=== PATIENT | female | born 1960 | race Caucasian/White ===

== ENCOUNTER 2017-07-27 16:33 | Inpatient (IN) | payer SELFPAY ==
[~2017-07-27] VITALS: Ht 162.6 cm; Wt 91.9 kg
[~2017-07-27 16:33] MED LIST: BUTALB-ACETAMI1 EACH PO; ESTRADIOL1 MG PO; METOPROLOL TART25 MG PO; NAPROXEN500 MG PO
[2017-07-27] MEDS ORDERED: SODIUM CHLORIDE 0.9% 1000ML 1,000 ML IV STA (18:11)
[2017-07-27] MEDS ORDERED: MORPHINE SULFATE 4 MG/ML SYR IV STA (18:11)
[2017-07-27] MEDS ORDERED: ACETAMINOPHEN 1000 MG/100 ML IV STA (18:11)
[2017-07-27] MEDS ORDERED: PROMETHAZINE HCL (IM) 25 MG/ML VIAL IV STA (18:11)
[2017-07-27] MEDS ORDERED: DIATRIZOATE MEGL/DIATRIZOA SOD 30 ML BTL PO ONE (18:15)
[2017-07-27] MEDS ORDERED: PROMETHAZINE 25MG/SOD CHL 0.9% 50 ML IV ONE (18:30)
[2017-07-27 19:28] LABS: BILIRUBIN,URINE 1+ (NEGATIVE); CLARITY,URINE SL CLOUDY (CLEAR); COLOR,URINE ORANGE (YELLOW); KETONES,URINE TRACE (NEGATIVE); LEUKOCYTE ESTERASE ,URINE NEGATIVE (NEGATIVE); NITRITE,URINE NEGATIVE (NEGATIVE); PROTEIN,URINE DIPSTICK 2+ (NEGATIVE); URINE UROBILINOGEN 0.2 mg/dL (0.2 - 1)
[2017-07-27] MEDS ORDERED: MORPHINE SULFATE 2 MG/ML SYR ONE (19:35)
[2017-07-27 19:39] LABS: BASOPHILS # (AUTO) 0.1 (0.0-0.1); BASOPHILS % 0.9 % (0.0-1.0); EOSINOPHILS # (AUTO) 0.2 (0.0-0.4); EOSINOPHILS % 1.7 % (0.0-6.0); HEMATOCRIT 37.1 % (34.2-44.1); HEMOGLOBIN 12.9 g/dL (12.0-16.0); LYMPHOCYTES # (AUTO) 2.5 (1.0-3.2); LYMPHOCYTES % 21.7 % (18.0-39.1); MEAN CORPUSCULAR HEMOGLOBIN 31.9 pg (28-32); MEAN CORPUSCULAR HGB CONC 34.8 g/dL (31-35); MEAN CORPUSCULAR VOLUME 91.8 fL (81-99); MONOCYTES # (AUTO) 1.2 (0.2-0.8); MONOCYTES % 10.5 % (4.4-11.3); NEUTROPHILS # (AUTO) 7.5 (2.1-6.9); PLATELET COUNT 305 x10e3/uL (140-360); RED BLOOD COUNT 4.04 x10e6/uL (3.6-5.1); RED CELL DISTRIBUTION WIDTH 12.6 % (11.7-14.4)
[2017-07-27 19:44] LABS: BACTERIA,URINE MODERATE /HPF; EPITHELIAL CELLS,URINE FEW /LPF; MUCUS,URINE MODERATE (RARE)
[2017-07-27 19:58] LABS: ALANINE AMINOTRANSFERASE 29 IU/L (0-55); ALBUMIN/GLOBULIN RATIO 0.6 (0.8-2.0); ALKALINE PHOSPHATASE 132 IU/L (40-150); ANION GAP 14.3 mmol/L (8-16); BLOOD UREA NITROGEN 7 mg/dL (7-26); BUN/CREATININE RATIO 8 (6-25); CARBON DIOXIDE 27 mmol/L (22-29); CHLORIDE 95 mmol/L (98-107); CREATININE, SERUM 0.83 mg/dL (0.57-1.11); EST GLOMERULAR FILTRATION RATE > 60 ML/MIN (60-); GLUCOSE 123 mg/dL (74-118); POTASSIUM 3.3 mmol/L (3.5-5.1); SODIUM 133 mmol/L (136-145)
[2017-07-27 20:05] LABS: CREATINE KINASE MB 0.5 ng/mL (0-5.0)
--- NOTE | 2017-07-27 20:48 | Diagnostic Imaging Report ---
EXAMINATION: CHEST SINGLE (PORTABLE) INDICATION: \S\ERMD ORDER \S\[id number] \S\1952 \S\Y COMPARISON: None FINDINGS: AP view TUBES and LINES: None. LUNGS: Lungs are well inflated. Lungs are clear. There is no evidence of pneumonia or pulmonary edema. PLEURA: No pleural effusion or pneumothorax. HEART AND MEDIASTINUM: The cardiomediastinal silhouette is unremarkable.. BONES AND SOFT TISSUES: No acute osseous lesion. Soft tissues are unremarkable. UPPER ABDOMEN: No free air under the diaphragm. IMPRESSION: No acute thoracic abnormality. Signed by: Dr. Trinity Oliveira M.D. on 07/27/2017 8:45 PM
[2017-07-27] MEDS ORDERED: SODIUM CHLORIDE 0.9% 50ML 50 ML ONE (21:21)
[2017-07-27] MEDS ORDERED: IOPAMIDOL 370 MG/ML 200 ML INFUS..BTL INJ ONE (21:22)
--- NOTE | 2017-07-27 21:41 | Diagnostic Imaging Report ---
EXAM: CT ABDOMEN/PELVIS W DATE: 07/27/2017 6:11 PM INDICATION: Abdominal pain, appendicitis or diverticulitis COMPARISON: None TECHNIQUE: The abdomen and pelvis were scanned using a multidetector helical scanner. Coronal and sagittal reformations were obtained. Routine protocol performed. IV Contrast: 100 ml Isovue 300/370 Oral contrast was administered FINDINGS: LOWER THORAX: No consolidations LIVER/BILIARY: No masses. No ductal dilatation. GALLBLADDER: Unremarkable SPLEEN: Unremarkable PANCREAS: Unremarkable ADRENALS: No nodules KIDNEYS: Symmetric perfusion. No enhancing masses. No hydronephrosis. GI TRACT: Mild to moderate wall thickening apparently involving the ascending colon and hepatic flexure. Normal appendix. VESSELS: Unremarkable PERITONEUM/RETROPERITONEUM: No free air or fluid LYMPH NODES: Prominent right pericolonic and ileocecal nodes, the largest 1.1 cm in short axis, likely reactive. Several prominent perirectal nodes are nonspecific measuring up to 7 mm. REPRODUCTIVE ORGANS/BLADDER: Hysterectomy. Unremarkable bladder BONES: Multilevel degenerative changes. IMPRESSION: 1. Right sided colitis, likely infectious or inflammatory. 2. Nonspecific perirectal nodes without identified rectal abnormality. Correlate with recent or upcoming colonoscopy. Signed by: Dr Naomi Pineda MD on 07/27/2017 9:38 PM
[2017-07-27] MEDS ORDERED: SODIUM CHLORIDE 0.9% 1000ML 1,000 ML ONE (22:27)
[2017-07-27] MEDS: SODIUM CHLORIDE 0.9% 1000ML 1,000 ML IV SCH (22:28)
[2017-07-27] MEDS: PIPER-TAZ 3.375 GM 50 ML IV SCH (23:01)
--- OUTSIDE RECORDS SUMMARY | 2017-07-27 23:07 | XMS REPORT ---
Author Author [facility] Address Unknown Phone Unavailable Care Team Providers Care Email Marketing Assistant Name Role Phone DENNIS MEJÍA Unavailable Unavailable Problems This patient has no known problems. Allergies, Adverse Reactions, Alerts This patient has no known allergies or adverse reactions. Medications This patient has no known medications. Results Test Description Test Time Test Comments Text Results Atomic Results Result Comments CHEST SINGLE (PORTABLE) [place] [address] Patient Name: JACINDA LOPEZ MR #: [id number] : 1960 Age/Sex: 57/F Req #: [id number] Adm Physician: Ordered by: FANTASMA DOS SANTOS SIDEWALK INSPECTOR Report #: [id number] Location: ER Room/Bed: Procedure: [id number] DX/CHEST SINGLE (PORTABLE) Exam Date: 07/27/17 Exam Time: 1949 REPORT STATUS: Signed EXAMINATION: CHEST SINGLE (PORTABLE) INDICATION: COMPARISON : None FINDINGS: AP view TUBES and LINES: None. LUNGS : Lungs are well inflated. Lungs are clear. There is no evidence of pneumonia or pulmonary edema. PLEURA: No pleural effusion or pneumothorax. HEART AND MEDIASTINUM: The cardiomediastinal silhouette is unremarkable.. BONES AND SOFT TISSUES: No acute osseous lesion. Soft tissues are unremarkable. UPPER ABDOMEN: No free air under the diaphragm. IMPRESSION: No acute thoracic abnormality. Signed by: Sánchez PonceD. on 07/27/2017 8:45 PM Dictated By: MARILIN PEREZ MD 44 Transcribed By: GERMAN on 07/27/172044 COPY TO: FANTASMA DOS SANTOS NP CT ABDOMEN/PELVIS W [place] [address] Patient Name: JACINDA LOPEZ MR #: [id number] : 1960 Age/Sex: 57/F Req #: [id number] Adm Physician: Ordered by: FANTASMA DOS SANTOS SIDEWALK INSPECTOR Report #: [id number] Location: ER Room/Bed: Procedure: [id number] CT/CT ABDOMEN/PELVIS W Exam Date: 07/27/17 Exam Time: 2039 REPORT STATUS: Signed EXAM: CT ABDOMEN/ PELVIS W DATE: 07/27/2017 6:11 PM INDICATION: Abdominal pain, appendicitis or diverticulitis COMPARISON: None TECHNIQUE: The abdomen and pelvis were scanned using a multidetector helical scanner. Coronal and sagittal reformations were obtained. Routine protocol performed. IV Contrast : 100 ml Isovue 300/370 Oral contrast was administered FINDINGS: LOWER THORAX: No consolidations LIVER/BILIARY: No masses. No ductal dilatation. GALLBLADDER: Unremarkable SPLEEN: Unremarkable PANCREAS: Unremarkable ADRENALS: No nodules KIDNEYS: Symmetric perfusion. No enhancing masses. No hydronephrosis. GI TRACT: Mild to moderate wall thickening apparently involving the ascending colon and hepatic flexure. Normal appendix. VESSELS: Unremarkable PERITONEUM/RETROPERITONEUM: No free air or fluid LYMPH NODES: Prominent right pericolonic and ileocecal nodes , the largest 1.1 cm in short axis, likely reactive. Several prominent perirectal nodes are nonspecific measuring up to 7 mm. REPRODUCTIVE ORGANS/BLADDER: Hysterectomy. Unremarkable bladder BONES: Multilevel degenerative changes. IMPRESSION: 1. Right sided colitis, likely infectious or inflammatory. 2. Nonspecific perirectal nodes without identified rectal abnormality. Correlate with recent or upcoming colonoscopy. Signed by: Dr Nelson Pineda MD on 07/27/2017 9:38 PM Dictated By: NELSON PINEDA MD 37 Transcribed By: GERMAN on 07/27/172137 COPY TO: FANTASMA DOS SANTOS NP
[2017-07-27 23:42] VITALS: BP_SYST 109; BP_SYST 118; BP_DIAS 49; BP_DIAS 57
[2017-07-28] VITALS: BP 109/49
[2017-07-28] MEDS ORDERED: METRONIDAZOLE 500MG/NS 100ML 100 ML IV SCH
[2017-07-28] MEDS: MORPHINE SULFATE 2 MG/ML SYR IV PRN ×5 (00:27→23:30)
[2017-07-28 04:00] VITALS: BP 107/60
[2017-07-28] MEDS: PIPER-TAZ 3.375 GM 50 ML IV SCH ×3 (06:16→17:24)
[2017-07-28] MEDS: SODIUM CHLORIDE 0.9% 1000ML 1,000 ML IV SCH ×2 (06:16→14:21)
[2017-07-28 07:17] LABS: BASOPHILS # (AUTO) 0.1 (0.0-0.1); BASOPHILS % 0.5 % (0.0-1.0); EOSINOPHILS # (AUTO) 0.2 (0.0-0.4); EOSINOPHILS % 2.4 % (0.0-6.0); HEMATOCRIT 34.3 % (34.2-44.1); HEMOGLOBIN 11.8 g/dL (12.0-16.0); LYMPHOCYTES % 21.7 % (18.0-39.1); MEAN CORPUSCULAR HEMOGLOBIN 32.6 pg (28-32); MEAN CORPUSCULAR HGB CONC 34.4 g/dL (31-35); MEAN CORPUSCULAR VOLUME 94.8 fL (81-99); MONOCYTES % 10.4 % (4.4-11.3); NEUTROPHILS # (AUTO) 5.9 (2.1-6.9); NEUTROPHILS % 63.9 % (38.7-80.0); PLATELET COUNT 286 x10e3/uL (140-360); RED BLOOD COUNT 3.62 x10e6/uL (3.6-5.1); RED CELL DISTRIBUTION WIDTH 12.9 % (11.7-14.4)
[2017-07-28 07:40] LABS: ALANINE AMINOTRANSFERASE 26 IU/L (0-55); ALBUMIN 2.6 g/dL (3.5-5.0); ALBUMIN/GLOBULIN RATIO 0.6 (0.8-2.0); ALKALINE PHOSPHATASE 119 IU/L (40-150); ANION GAP 13.3 mmol/L (8-16); BLOOD UREA NITROGEN 5 mg/dL (7-26); BUN/CREATININE RATIO 6 (6-25); CALCIUM 9.2 mg/dL (8.4-10.2); CARBON DIOXIDE 27 mmol/L (22-29); CHLORIDE 101 mmol/L (98-107); CREATININE, SERUM 0.83 mg/dL (0.57-1.11); EST GLOMERULAR FILTRATION RATE > 60 ML/MIN (60-); GLUCOSE 114 mg/dL (74-118); POTASSIUM 3.3 mmol/L (3.5-5.1); SODIUM 138 mmol/L (136-145)
[2017-07-28 07:45] VITALS: BP 107/60
[2017-07-28 08:33] VITALS: BP 125/65
[2017-07-28 11:33] LABS: BAND NEUTROPHILS % (MANUAL) 6 %; EOSINOPHILS % (MANUAL) 1 % (0-7); LYMPHOCYTES % (MANUAL) 19 % (19-48); MONOCYTES % (MANUAL) 13 % (3.4-9.0); NEUTROPHILS % (MANUAL) 59 % (40-74)
[2017-07-28 11:49] LABS: HYPOCHROMASIA SLIGHT
[2017-07-28 11:50] LABS: ANISOCYTOSIS SLIGHT; PLATELET ESTIMATE ADEQUATE; PLATELET MORPHOLOGY COMMENT NORMAL; RBC MORPHOLOGY COMMENT NORMAL
[2017-07-28 12:00] VITALS: BP 121/65
[2017-07-28] MEDS ORDERED: POTASSIUM CHLORIDE 20 MEQ TAB CR PO NR (15:30)
--- NOTE | 2017-07-28 16:56 | History and Physical ---
HISTORY OF PRESENT ILLNESS: A 57-year-old female who claimed that she has no significant past medical history. Came here with vomiting, diarrhea and abdominal pain for a few days after she ate outside of her house. REVIEW OF SYSTEMS: CARDIOVASCULAR: No chest pain or palpitations. RESPIRATORY: No shortness of breath, no cough. GASTROINTESTINAL: Nausea, vomiting, diarrhea, right upper quadrant pain and right flank. GENITOURINARY: No frequency, no dysuria. ALLERGIES: SHE IS ALLERGIC TO FLAGYL AND SHE IS ALLERGIC TO BACTRIM. SOCIAL HISTORY: She does not smoke. She does not drink. PAST MEDICAL HISTORY: She claims that she does not have any significant medical condition. PHYSICAL EXAMINATION: VITAL SIGNS: Blood pressure 121/65, temperature 100.7, heart rate 88 per minute, respiratory rate is 16 per minute. Oxygen saturation 93%. HEART: Shows regular rhythm. Normal S1 and S2 sounds. LUNGS: Clear bilaterally. ABDOMEN: Soft. She has tenderness in the right upper quadrant, right flank and right lower quadrant. EXTREMITIES: Show no evidence of cyanosis, edema or trauma. LABORATORY DATA: On the blood work we have a BMP :sodium 138, potassium 3.3, chloride 101, CO2 27, BUN 5, creatinine 0.83, glucose 114. On the CBC: White blood count 9.27, hemoglobin 11.8, hematocrit 34.3, platelet count 296,000. AST 22, ALT 26, total bilirubin 0.5, alkaline phosphatase 119. FINAL IMPRESSION: 1. Right-sided colitis, rule out infectious colitis. 2. Hypokalemia. PLAN OF TREATMENT: Replace the potassium with 40 mEq p.o. one time. Continue Zosyn 3.375 grams IV piggyback q.6 hours. IV fluids with normal saline at 125 mL an hour. Morphine 4 mg IV q.4 hours. Zofran 4 mg IV q.6 hours as needed. Consult Dr. Sigifredo Zambrano for gastroenterology and recheck the potassium and magnesium levels today. Job#: [id number] EV
[2017-07-28] MEDS: ACETAMINOPHEN 325 MG TAB PO PRN (17:25)
[2017-07-28] MEDS ORDERED: POTASSIUM CHLORIDE 20 MEQ TAB CR PO ONE (18:15)
--- NOTE | 2017-07-28 18:29 | Diagnostic Imaging Report ---
PROCEDURE:HIP RIGHT 2-3 VW (+/- PELVIS) COMPARISON:[facility], DX, SP LUMBAR, COMPLETE MIN 4VW, 08/16/2016, 22:33. INDICATIONS:RIGHT HIP PAIN TODAY FINDINGS: BONES:Normal mineralization. No acute displaced fracture or dislocation. No lytic or blastic lesion. Mild degenerative changes in the right hip joint. SOFT TISSUES:Negative. OTHER:No obstructive bowel gas pattern. CONCLUSION: No acute abnormalities. Mild degenerative changes in the right hip joint. Fam Mcbride M.D. Dictated by: Fam Mcbride M.D. on 07/28/2017 at 18:31 Electronically approved by: Fam Mcbride M.D. on 07/28/2017 at 18:31
[2017-07-28 20:00] VITALS: BP 122/60
[2017-07-28 21:16] LABS: ANION GAP 10.2 mmol/L (8-16); BLOOD UREA NITROGEN 6 mg/dL (7-26); BUN/CREATININE RATIO 8 (6-25); CALCIUM 8.6 mg/dL (8.4-10.2); CARBON DIOXIDE 27 mmol/L (22-29); CHLORIDE 102 mmol/L (98-107); CREATININE, SERUM 0.78 mg/dL (0.57-1.11); EST GLOMERULAR FILTRATION RATE > 60 ML/MIN (60-); GLUCOSE 110 mg/dL (74-118); POTASSIUM 3.2 mmol/L (3.5-5.1); SODIUM 136 mmol/L (136-145)
[2017-07-28] MEDS ORDERED: POTASSIUM CHLORIDE 20 MEQ TAB CR PO STA (22:39)
[2017-07-29] VITALS: BP 130/83
[2017-07-29] MEDS: SODIUM CHLORIDE 0.9% 1000ML 1,000 ML IV SCH ×4 (00:22→23:03)
[2017-07-29] MEDS: PIPER-TAZ 3.375 GM 50 ML IV SCH ×5 (00:22→23:52)
[2017-07-29] MEDS ORDERED: PEG (High)/E-LYTE SOLN 4,000 ML BTL PO ONE (00:30)
[2017-07-29 04:00] VITALS: BP 119/66
[2017-07-29] MEDS: MORPHINE SULFATE 2 MG/ML SYR IV PRN ×4 (06:05→23:03)
[2017-07-29 09:46] VITALS: BP 146/74
[2017-07-29] MEDS ORDERED: MIDAZOLAM HCL 2 MG/2 ML VIAL ONE (12:19)
[2017-07-29] MEDS ORDERED: FENTANYL CITRATE/PF 100MCG/2 ML INJ ONE (12:19)
[2017-07-29] MEDS ORDERED: MAGNESIUM SULFATE 2GM/50ML 50 ML IV ONE (14:30)
[2017-07-29] MEDS ORDERED: POTASSIUM CHLORIDE 10 MEQ TABCR PO NR (14:30)
[2017-07-29 14:52] VITALS: BP 161/91
--- NOTE | 2017-07-29 15:12 | Progress Note ---
DATE: INTERNAL MEDICINE PROGRESS NOTE SUBJECTIVE: Patient is doing better now, not having diarrhea like she had before. PHYSICAL EXAMINATION: HEART: Shows regular rhythm. Normal S1 and S2 sounds. LUNGS: Clear bilaterally. ABDOMEN: Soft. Tenderness in the right flank area. EXTREMITIES: Show no evidence of cyanosis, edema or trauma. VITAL SIGNS: Blood pressure 146/74. Temperature 98.0 degrees. Heart rate 76 per minute. Respiratory rate is 20 per minute. Oxygen saturation 96%. On the BMP: Sodium 136, potassium 3.4, chloride 102, CO2 27, BUN 6, creatinine 0.78, glucose 110. On the CBC: White blood count 9.27, hemoglobin 11.8, hematocrit 34.3, platelet count 296,000. AST 22, ALT 26, total bilirubin 0.5, alkaline phosphatase 119. FINAL IMPRESSION: 1. Right-sided colitis. 2. Hypokalemia. PLAN OF TREATMENT: We are going to replace the potassium. Continue Zosyn 3.375 grams IV piggyback q.6 hours. Normal saline at 125 mL an hour. Morphine 4 mg IV q.4 hours as needed. Zofran 4 mg IV q.4 hours as needed. Tylenol 325 mg q.4 hours as needed. Repeat BMP, put the magnesium level. Patient is going for a colonoscopy. Job#: [id number] EV
[2017-07-29 17:25] LABS: WBC,FECAL (FECAL LACTOFERRIN) POSITIVE (NEGATIVE)
[2017-07-29] MEDS ORDERED: METRONIDAZOLE 500MG/NS 100ML 100 ML IV SCH ×2 (18:00→20:00)
--- NOTE | 2017-07-29 18:40 | Operative Report ---
DATE OF PROCEDURE: July 29, 2017 REFERRING PHYSICIAN: Dr. José Miguel Armenta. PROCEDURE PERFORMED: Colonoscopy with random biopsies. INDICATIONS FOR COLONOSCOPY: Diarrhea and abnormal CT scan of the abdomen. MEDICATION: Patient was done under MAC. Please see anesthesiologist's note. PROCEDURE: With patient in the lateral decubitus position, the flexible fiberoptic Olympus colonoscope was inserted into the rectum with ease and advanced all the way to the cecum. The mucosa was diffusely ulcerated. I repeat, the colonic mucosa was diffusely ulcerated. The scope was then withdrawn slowly, and the mucosa overlying the cecum, ascending, transverse, descending, sigmoid, and rectum was diffusely ulcerated. Multiple random biopsies were obtained. The scope was then retroflexed into the distal rectum. Small internal hemorrhoids were noted, none of which was actively bleeding. The scope was then straightened out. It was subsequently withdrawn after securing an adequate stool specimen that was sent for the appropriate stool studies. Patient tolerated the procedure well. IMPRESSION 1. Hood ulcerative colitis; random biopsies obtained. 2. Internal hemorrhoids; none actively bleeding. PLAN: Follow up histology. Follow up stool studies. Check IBD panel. Check CRP and sed rate. Timing of followup colonoscopy pending pathology report. Job#: [id number] MIGUEL cc:Dr. José Miguel Armenta
[2017-07-29 18:53] LABS: ANION GAP 12.3 mmol/L (8-16); BLOOD UREA NITROGEN < 5 mg/dL (7-26); CALCIUM 9.3 mg/dL (8.4-10.2); CARBON DIOXIDE 28 mmol/L (22-29); CHLORIDE 97 mmol/L (98-107); CREATININE, SERUM 0.74 mg/dL (0.57-1.11); EST GLOMERULAR FILTRATION RATE > 60 ML/MIN (60-); GLUCOSE 98 mg/dL (74-118); POTASSIUM 3.3 mmol/L (3.5-5.1); SODIUM 134 mmol/L (136-145)
[2017-07-29 18:55] LABS: BUN/CREATININE RATIO 7 (6-25)
[2017-07-29 20:00] VITALS: BP 138/81
[2017-07-29] MEDS: DICYCLOMINE HCL 10 MG CAP PO SCH (20:11)
[2017-07-29] MEDS: ACETAMINOPHEN 325 MG TAB PO PRN (21:00)
[2017-07-30] VITALS (7 sets, daily range): BP systolic 121–146; BP diastolic 64–81
[2017-07-30] MEDS: MORPHINE SULFATE 2 MG/ML SYR IV PRN ×4 (05:23→21:00)
[2017-07-30] MEDS: PIPER-TAZ 3.375 GM 50 ML IV SCH ×4 (05:46→23:15)
[2017-07-30] MEDS: DICYCLOMINE HCL 10 MG CAP PO SCH ×3 (08:09→21:50)
[2017-07-30] MEDS: SODIUM CHLORIDE 0.9% 1000ML 1,000 ML IV SCH ×3 (10:00→22:21)
[2017-07-30] MEDS ORDERED: PROPOFOL IV EMULSION 10 MG/ML 50 ML VIAL ONE (11:22)
[2017-07-30] MEDS ORDERED: HYOSCYAMINE SULFATE 0.5 MG/ML AMP ONE (11:22)
[2017-07-30 11:45] LABS: C DIFFICILE TOXIN A&B AMP PROB NEGATIVE (NEGATIVE)
[2017-07-30] MEDS: ACETAMINOPHEN 325 MG TAB PO PRN (12:05)
[2017-07-30] MEDS: ONDANSETRON HCL 4 MG ORAL DISINTEGRATING TAB PO PRN ×2 (12:30→16:47)
[2017-07-30] MEDS ORDERED: ACETAMINOPHEN 325 MG TAB PO PRN (12:45)
[2017-07-30] MEDS ORDERED: POTASSIUM CHLORIDE 20 MEQ TAB CR PO NR (12:45)
--- NOTE | 2017-07-30 12:54 | Progress Note ---
DATE: INTERNAL MEDICINE PROGRESS NOTE SUBJECTIVE: The patient is complaining of abdominal pain, some blood in the stools. OBJECTIVE: ABDOMEN: Soft. Slightly tender on the right side and the epigastric area. VITAL SIGNS: Blood pressure is 146/81. Temperature 98.9. Heart rate 80 per minute. Respiratory rate is 20 per minute. Oxygen saturation 93%. On the BMP: Sodium 134, potassium 3.3, chloride 97, CO2 28, BUN 5, creatinine 0.74, glucose 98. On the CBC: White blood count 9.27, hemoglobin 8.8, hematocrit 34.3, platelet count 296,000. AST 22, ALT 26, total bilirubin 0.5, alkaline phosphatase 119. FINAL IMPRESSION: 1. Ulcerative colitis as per findings on the colonoscopy. 2. Hypokalemia. PLAN OF TREATMENT: Continue with Zosyn 3.375 grams IV piggyback q.6 hours. Normal saline. Morphine 4 mg IV q.4 hours. Increase Tylenol to 650 mg q.4 hours as needed. Replace the potassium as needed. Check the potassium and magnesium level tomorrow. Continue Bentyl 10 mg 3 times a day. We are going to be waiting for the biopsy report, which can take several day. The patient might be able to be discharged before the biopsy is ready, and she can follow up with Dr. Sigifredo Zambrano, gastroenterology, as an outpatient. Job#: [id number] EV
[2017-07-31] VITALS (7 sets, daily range): BP systolic 107–144; BP diastolic 55–67
[2017-07-31] MEDS ORDERED: MESALAMINE 0.375 GM CAPCR PO STA (02:42)
[2017-07-31] MEDS ORDERED: DICYCLOMINE HCL 20 MG TAB PO STA (02:47)
[2017-07-31] MEDS: ACETAMINOPHEN 325 MG TAB PO PRN ×3 (03:10→19:29)
[2017-07-31] MEDS: SODIUM CHLORIDE 0.9% 1000ML 1,000 ML IV SCH ×2 (06:01→08:49)
[2017-07-31] MEDS: DICYCLOMINE HCL 20 MG TAB PO SCH ×3 (06:01→21:49)
[2017-07-31] MEDS: PIPER-TAZ 3.375 GM 50 ML IV SCH ×4 (06:01→23:45)
[2017-07-31 07:32] LABS: ANION GAP 11.5 mmol/L (8-16); BLOOD UREA NITROGEN < 5 mg/dL (7-26); CALCIUM 8.8 mg/dL (8.4-10.2); CARBON DIOXIDE 28 mmol/L (22-29); CHLORIDE 102 mmol/L (98-107); CREATININE, SERUM 0.73 mg/dL (0.57-1.11); EST GLOMERULAR FILTRATION RATE > 60 ML/MIN (60-); GLUCOSE 94 mg/dL (74-118); POTASSIUM 3.5 mmol/L (3.5-5.1); SODIUM 138 mmol/L (136-145)
[2017-07-31 07:33] LABS: BUN/CREATININE RATIO 7 (6-25)
[2017-07-31] MEDS: MESALAMINE 500 MG CAPCR PO SCH (08:49)
[2017-07-31] MEDS: ONDANSETRON HCL 4 MG ORAL DISINTEGRATING TAB PO PRN (08:49)
[2017-07-31] MEDS ORDERED: MESALAMINE 0.375 GM CAPCR PO SCH (09:00)
[2017-07-31] MEDS ORDERED: POTASSIUM CHLORIDE 20 MEQ TAB CR PO STA (11:52)
--- NOTE | 2017-07-31 13:21 | Progress Note ---
DATE: INTERNAL MEDICINE PROGRESS NOTE CHIEF COMPLAINT: Nausea and lack of appetite. PHYSICAL EXAM: VITAL SIGNS: Blood pressure 129/60. Temperature 97.0 degrees Fahrenheit. Heart rate 76 per minute. Respiratory rate is 18 per minute. Oxygen saturation 96%. HEART: Regular rhythm. Normal S1, S2 sounds. LUNGS: Clear bilaterally. ABDOMEN: Soft. No tension, distention, or visceromegaly. EXTREMITIES: Show no evidence of cyanosis or trauma. On the BMP: Sodium 138, potassium 3.5, chloride 102, CO2 28, BUN 5, creatinine 0.73, glucose 94. On the CBC: White blood count 9.27, hemoglobin 11.8, hematocrit 34.3, platelet count 286,000, AST 22, ALT 26, total bilirubin 0.5, alkaline phosphatase 119. FINAL IMPRESSION 1. Ulcerative colitis infection hepatic. Stool studies are still pending. 2. Hypokalemia. PLAN OF TREATMENT: Continue Apriso 4 tablets q.i.d. Continue IV Zosyn. We are going to decrease the amount of IV fluids. Replace the potassium. Recheck potassium tomorrow. Job#: [id number] FAHEEM
[2017-08-01] VITALS: BP 125/80
[2017-08-01] MEDS ORDERED: DIPHENOXYLATE/ATROPINE TAB PO STA (01:06)
[2017-08-01] MEDS ORDERED: METHYLPREDNISOLONE SOD SUCC 40 MG/ML VIAL IV STA (01:15)
[2017-08-01 04:00] VITALS: BP 133/62
[2017-08-01] MEDS: METHYLPREDNISOLONE SOD SUCC 40 MG/ML VIAL IV SCH ×3 (05:29→21:56)
[2017-08-01] MEDS: DICYCLOMINE HCL 20 MG TAB PO SCH ×3 (06:20→21:56)
[2017-08-01] MEDS: PIPER-TAZ 3.375 GM 50 ML IV SCH ×4 (06:20→23:58)
[2017-08-01] MEDS: DIPHENOXYLATE/ATROPINE TAB PO SCH ×4 (06:21→23:58)
[2017-08-01 08:15] VITALS: BP 148/65
[2017-08-01] MEDS: MESALAMINE 500 MG CAPCR PO SCH (08:54)
[2017-08-01 12:08] VITALS: BP 170/82
[2017-08-01] MEDS ORDERED: CLONIDINE HCL 0.2 MG TAB PO PRN (12:30)
--- NOTE | 2017-08-01 13:00 | Progress Note ---
DATE: INTERNAL MEDICINE PROGRESS NOTE SUBJECTIVE: She is feeling better. Finally, the diarrhea is resolving. PHYSICAL EXAMINATION: Blood pressure is 170/82. Temperature 97 degrees. Heart rate 96 per minute. Respiratory rate is 20 per minute. Oxygen saturation 96%. Abdomen is soft. Nontender, no distention, no visceromegaly. BLOOD WORK: BMP: Sodium 138, potassium 3.5, chloride 102, CO2 28, BUN 5, creatinine 0.73. Glucose 94. On the CBC, white blood count 9.27, hemoglobin 11.8, hematocrit 34.3, platelet count 296,000. AST 22, ALT 26, total bilirubin 0.5, alkaline phosphatase 119. FINAL IMPRESSION: Episode of pancolitis, most likely secondary to ulcerative colitis. PLAN OF TREATMENT 1. Continue with IV Zosyn. 2. Continue with Tylenol 350 mg q.4 h. as needed. 3. Bentyl 20 mg q.8 h. 4. Mesalamine 1500 mg daily. 5. Lomotil q.6 h. as needed. 6. Methylprednisolone 40 mg IV q.8 h. 7. Some of the stool tests are still pending. The biopsy report is pending. Patient might be able to go home tomorrow if okay with Dr. Zambrano. She was told that she has to follow up with Dr. Sigifredo Zambrano as an outpatient. She is going to need a colonoscopy once a year because of possible progression to colon cancer. Job#: [id number]
--- NOTE | 2017-08-01 13:02 | Progress Note ---
DATE: INTERNAL MEDICINE PROGRESS NOTE ADDENDUM: We are going to start her on Norvasc 5 mg daily because of hypertension, and clonidine is going to be 0.2 mg q.4 h. as needed for hypertension. Job#: [id number] EV
[2017-08-01 16:15] VITALS: BP 155/81
[2017-08-01] MEDS: ACETAMINOPHEN 325 MG TAB PO PRN (19:40)
[2017-08-01 20:00] VITALS: BP 144/71
[2017-08-02] VITALS: BP 105/51
[2017-08-02 04:00] VITALS: BP 118/64
[2017-08-02] MEDS: METHYLPREDNISOLONE SOD SUCC 40 MG/ML VIAL IV SCH (06:06)
[2017-08-02] MEDS: DICYCLOMINE HCL 20 MG TAB PO SCH (06:07)
[2017-08-02] MEDS: PIPER-TAZ 3.375 GM 50 ML IV SCH (06:08)
[2017-08-02 07:17] LABS: ANION GAP 15.2 mmol/L (8-16); BLOOD UREA NITROGEN 8 mg/dL (7-26); BUN/CREATININE RATIO 11 (6-25); CALCIUM 10.2 mg/dL (8.4-10.2); CARBON DIOXIDE 28 mmol/L (22-29); CHLORIDE 101 mmol/L (98-107); CREATININE, SERUM 0.76 mg/dL (0.57-1.11); EST GLOMERULAR FILTRATION RATE > 60 ML/MIN (60-); GLUCOSE 148 mg/dL (74-118); POTASSIUM 4.2 mmol/L (3.5-5.1); SODIUM 140 mmol/L (136-145)
[2017-08-02] MEDS: MESALAMINE 500 MG CAPCR PO SCH (08:29)
[2017-08-02 08:30] VITALS: BP 155/75
[2017-08-02] MEDS ORDERED: AMLODIPINE BESYLATE 5 MG TAB PO SCH (09:00)
--- NOTE | 2017-08-02 16:17 | Discharge Summary ---
This 57-year-old female, with no past medical history, came here with abdominal pain and diarrhea. She was found to have ulcerative colitis. Started on IV Solu-Medrol. She was started on mesalamine. Patient is doing better. Stool for culture came back negative. Some of the blood tests are still pending. Dr. Sigifredo Zambrano did a colonoscopy. She is going to follow up with him in a week. I told the patient it is important for her to follow up with Dr. Sigifredo Zambrano especially as ulcerative colitis requires frequent colonoscopies to prevent colon cancer. On physical exam, blood pressure 155/75, temperature 96.8, heart rate 63 per minute, respiratory rate 18 per minute. Oxygen saturation is 94%. The heart shows regular rhythm. Normal S1 and S2 sounds. Lungs are clear bilaterally. Abdomen is soft. No tenderness, distention or visceromegaly. On the BMP, sodium is 140, potassium 4.2, chloride 101, CO2 28, BUN 8, creatinine 0.76, glucose 148. On the CBC, white blood count 9.27, hemoglobin 11.8, hematocrit 34.3, platelet count 296,000. AST 22, ALT 26, total bilirubin 0.5, alkaline phosphatase 119. FINAL IMPRESSION 1. Ulcerative colitis. 2. Hypotension. PLAN OF TREATMENT: Patient will continue with mesalamine sustained release 1,200 mg daily and Medrol Dosepak to take as directed. She is going to get amlodipine 5 mg daily. As I said, the followup going to be by Dr. Sigifredo Zambrano, shoe repairman. The patient is to have probably followup colonoscopies in the future and follow up on the blood work and the biopsies that he took in the colon. Patient is aware of the followups and the need for them. All the questions have been answered. PÉREZ WYLIE MD Job#: [id number]
== END 2017-08-02 13:10 | disposition home or self-care (01) | DRG 387 ==
LOC: ER 16:33 → ERHOLD 23:04 → IMCU 23:08 → OBSVTOIN 07-30 12:30 → MED/SURG 07-30 14:09
PROVIDERS: ADMIT Internal Medicine; ATTEND Internal Medicine
PROC: 0DBE8ZX Excision of Large Intestine, Via Natural or Artificial Opening Endoscopic, Diagnostic (ICD-10-PCS; principal; 2017-07-29 16:43)
DX: K51.00 Ulcerative (chronic) pancolitis without complications (principal); E87.6 Hypokalemia; Z88.1 Allergy status to other antibiotic agents; Z88.3 Allergy status to other anti-infective agents; K64.8 Other hemorrhoids; I95.9 Hypotension, unspecified; Z88.5 Allergy status to narcotic agent; Z88.2 Allergy status to sulfonamides; Z88.8 Allergy status to other drugs, medicaments and biological substances
CPT/HCPCS: 36415; 45380; 71045; 74177; 80048; 80053; 81001; 82270; 82550; 82553; 83605; 83630; 83735; 83993; 84132; 84484; 85025; 85651; 86140; 86256; 86671; 87040; 87045; 87177; 87328; 87493; 88305; 93005; 96374; 99284; G0378; J1980; J2250; J2270; J2543; J2550; J2920; J7030; Q9967

== ENCOUNTER → 2017-10-21 | Day surgery (SDC) | payer SELFPAY ==
[~2017-10-21] MED LIST changes: +APRISO0.375 GM PO; +FENTANYL CITRATE/PF 100MCG/2 ML INJ ONE; +HYOSCYAMINE SULFATE 0.5 MG/ML AMP ONE; +MIDAZOLAM HCL 5MG/ML 2ML VIAL ONE; +PROPOFOL IV EMULSION 10 MG/ML 50 ML VIAL ONE
--- NOTE | 2017-10-21 18:33 | Operative Report ---
DATE OF PROCEDURE: October 21, 2017 PROCEDURE PERFORMED: Colonoscopy with biopsies. INDICATIONS FOR COLONOSCOPY: History of ulcerative colitis. MEDICATION: Patient was done under MAC. Please see anesthesiologist's note. PROCEDURE: With patient in the left lateral decubitus position, the flexible fiberoptic Olympus colonoscope was inserted into the rectum with ease and advanced all the way to the cecum. The ileocecal valve was intubated, and the scope was advanced into the terminal ileum. Biopsies were obtained. The scope was then withdrawn back into the colon. It was then withdrawn slowly. Mucosa overlying the ascending, transverse, descending and sigmoid colon revealed some patchy mild inflammatory changes. Multiple random biopsies were obtained. The scope was then retroflexed into the distal rectum and small internal hemorrhoids were noted, none of which was actively bleeding. The scope was then straightened out. It was subsequently withdrawn. Patient tolerated the procedure well. IMPRESSION: 1. Mild patchy colitis. Random biopsies obtained. 2. Small internal hemorrhoids, none actively bleeding. PLAN: Follow up histology. Continue Apriso 0.375 mg 4 tablets p.o. daily. A followup colonoscopy in 5 years. Job#: [id number] EV cc:PÉREZ WYLIE MD
== END | disposition home or self-care (01) ==
LOC: OR 11:53
PROVIDERS: ATTEND Internal Medicine Gastroenterology
DX: K51.90 Ulcerative colitis, unspecified, without complications (principal); R03.0 Elevated blood-pressure reading, without diagnosis of hypertension; K64.8 Other hemorrhoids; Z01.810 Encounter for preprocedural cardiovascular examination
CPT/HCPCS: 45380; 93005; J1980; 45378; J2250

== ENCOUNTER 2018-06-06 10:07 | Emergency (ER) | payer OTHER, SELFPAY ==
[~2018-06-06] VITALS: Ht 162.6 cm; Wt 86.2 kg
[~2018-06-06 10:07] MED LIST changes: -FENTANYL CITRATE/PF 100MCG/2 ML INJ ONE; -HYOSCYAMINE SULFATE 0.5 MG/ML AMP ONE; -MIDAZOLAM HCL 5MG/ML 2ML VIAL ONE; -PROPOFOL IV EMULSION 10 MG/ML 50 ML VIAL ONE
--- OUTSIDE RECORDS SUMMARY | 2018-06-06 10:09 | XMS REPORT | Continuity of Care Document ---
Author Author [facility] Interface Address Unknown Phone Unavailable Problems Problem Status Onset Date Classification Date Reported Comments Source OSTEOPROSIS Active 06/21/2017 [facility] DJD RIGHT FOOT Active 12/05/2016 [facility] FIBROIDS Active 05/19/2014 [facility] Abnormal vaginal bleeding Active Problem 07/09/2017 [facility] Female stress incontinence Active Problem 07/09/2017 [facility] Medications Medication Details Route Status Patient Instructions Ordering Provider Order Date Source Acetaminophen 325 MG / Oxycodone Hydrochloride 5 MG Oral Tablet [Percocet 5/325] 1 tab, PO, Q4H, PRN Pain Score 6-10, # 20 tab, 0 Refill(s) Active 06/27/2014 [facility] 24 HR Metoprolol Tartrate 50 MG Extended Release Tablet [Toprol] 50 mg, 1 tab, Route: PO, Drug form: ERTAB, Daily, Start date: 06/27/14 9:00:00, Duration: 30 day, Stop date: 07/26/14 9:00:00Notes: (Same as: Toprol XL) May split tab, but do not crush. Inactive 06/27/2014 [facility] Estradiol 1 mg, 1 tab, Route: PO, Drug form: TAB, Daily, Dosing Weight 86.364, kg, Start date: 06/27/14 9:00:00, Duration: 30 day, Stop date: 07/26/14 9:00:00 Inactive 06/27/2014 [facility] Acetaminophen 325 MG / Oxycodone Hydrochloride 5 MG Oral Tablet [Percocet 5/325] 2 tab, Route: PO, Drug Form: TAB, Dosing Weight 86.364, kg, Q6H, PRN Pain Score 7-10, Start date: 06/27/14 7:32:00, Duration: 30 day, Stop date: 07/27/14 7:31:00Notes: Do not exceed 4gm/day of acetaminophen. (Same as: Percocet-5/325) Inactive 06/27/2014 [facility] Acetaminophen 325 MG / Oxycodone Hydrochloride 5 MG Oral Tablet [Percocet 5/325] 1 tab, Route: PO, Drug Form: TAB, Dosing Weight 86.364, kg, Q6H, PRN Pain Score 4-6, Start date: 06/27/14 7:31:00, Duration: 30 day, Stop date: 07/27/14 7:30:00Notes: Do not exceed 4gm/day of acetaminophen. (Same as: Percocet-5/325) Inactive 06/27/2014 [facility] Acetaminophen 325 MG / Oxycodone Hydrochloride 5 MG Oral Tablet [Percocet 5/325] 1 to 2 tabs, PO, Q4H, PRN Pain Score 4-6, # 20 tab, 0 Refill(s) Active 06/27/2014 [facility] 24 HR Metoprolol Tartrate 50 MG Extended Release Tablet [Toprol] 50 mg=1 tab, PO, Daily, 0 Refill(s) Active 06/27/2014 [facility] 24 HR tramadol hydrochloride 100 MG Extended Release Tablet 50 mg, 1 tab, Route: PO, Drug form: TAB, Q4H, PRN Pain Score 1-3, Start date: 06/27/14 7:26:00, Duration: 30 day, Stop date: 07/27/14 7:25:00Notes: Not to exceed 400mg/day. (Same As: Ultram) Inactive 06/27/2014 [facility] Hydromorphone 15 mg, 30 mL, Route: IV, Initial Loading Dose: 0.5 mg, [employer] Dose: 0.1mg, [employer] Lockout: 10 minutes, Continuous Basal Rate: 0 mg, 4 Hour Limit (In MG): 6, Drug Form: INJ, Continuous, Start date: 06/27/14 2:00:00, Duration: 30 day, Stop date: 07/27/14 1:59:00Notes: (Same as: Dilaudid) conc=0.5 mg/ml Hydromorphone [employer] Dose: ;Delay: ;Basal: Inactive 06/27/2014 [facility] Naloxone 0.04 mg, 0.1 mL, Route: IVP, Drug form: INJ, Q2MIN, Dosing Weight 86.364, kg, PRN Narcotic Reversal, Start date: 06/27/14 1:36:00, Duration: 30 day, Stop date: 07/27/14 1:35:00Notes: Same as Narcan Inactive 06/27/2014 [facility] Ibuprofen 800 mg, 1 tab, Route: PO, Drug form: TAB, TID, Dosing Weight 76.364, kg, Start date: 06/26/14 21:00:00, Duration: 30 day, Stop date: 07/26/14 15:00:00Notes: (Same as: Motrin) "Do Not Crush" Take with food. No Longer Active 06/27/2014 [facility] Ondansetron 4 mg, 2 mL, Route: IVP, Drug form: INJ, ONCE, Dosing Weight 86.364, kg, PRN Nausea & Vomiting, Start date: 06/26/14 14:03:00Notes: (Same as: Zofran) MEDICATION WASTE Product Size: 4 mg Product Wasted: ___ mg Inactive 06/26/2014 [facility] Hydromorphone 0.5 mg, 0.5 mL, Route: IVP, Drug form: INJ, Q5Min, Dosing Weight 86.364, kg, PRN Pain Score 7-10, Start date: 06/26/14 14:03:00, Duration: 4 doses or times, Stop date: Limited # of timesNotes: Same a s: Dilaudid Inactive 06/26/2014 [facility] Morphine 2 mg, 1 mL, Route: IVP, Drug form: INJ, Q5Min, Dosing Weight 86.364, kg, PRN Pain Score 4-6, Start date: 06/26/14 14:03:00, Duration: 5 doses or times, Stop date: Limited # of timesNotes: (Same as:MO RPhine Sulfate) Inactive 06/26/2014 [facility] Ketorolac 30 mg, 1 mL, Route: IVP, Drug form: INJ, ONCE, Dosing Weight 86.364, kg, Start date: 06/26/14 14:03:00, Duration: 1 doses or times, Stop date: 06/26/14 14:03:00Notes: (Same as:Toradol) IV bolus must be given >15 seconds. Give IM administration slowly and deeply into the muscle. Not for use > 4 days MEDICATION WASTE Product Size: 30 mg Product Wasted: ___ mg Inactive 06/26/2014 [facility] Flumazenil 0.2 mg, 2 mL, Route: IVP, Drug form: INJ, PRN, Dosing Weight 86.364, kg, PRN Benzodiazepine Reversal, Initial dose, Start date: 06/26/14 14:03:00, Duration: 30 day, Stop date: 07/26/14 14:02:00Notes: (Same as: Romazicon) Inactive 06/26/2014 [facility] Naloxone 0.04 mg, 0.1 mL, Route: IVP, Drug form: INJ, Q2MIN, Dosing Weight 86.364, kg, PRN Narcotic Reversal, Start date: 06/26/14 14:03:00, Duration: 8 doses or times, Stop date: Limited # of timesNotes: Same as Narcan Inactive 06/26/2014 [facility] Fentanyl 25 microgram, 0.5 mL, Route: IVP, Drug form: INJ, Q5Min, Dosing Weight 86.364, kg, PRN Pain Score 4-6, Start date: 06/26/14 14:03:00, Duration: 4 doses or times, Stop date: Limited # of timesNotes: (Same as: Sublimaze) Preservative free. Inactive 06/26/2014 [facility] Diphenhydramine 12.5 mg, 0.25 mL, Route: IVP, Drug form: INJ, Q6H, Dosing Weight 86.364, kg, PRN Itching, Start date: 06/26/14 14:03:00, Duration: 30 day, Stop date: 07/26/14 14:02:00Notes: (Same as: Benadryl) Inactive 06/26/2014 [facility] Meperidine 12.5 mg, 0.5 mL, Route: IVP, Drug form: INJ, Q30Min, Dosing Weight 86.364, kg, PRN Other -See Comment, For shivering, Start date: 06/26/14 14:03:00, Duration: 2 doses or times, Stop date: Limited # of t imesNotes: (Same as: Demerol) "Use Precaution in Elderly, Seizure disorders, and Renal impairment" Inactive 06/26/2014 [facility] Morphine 30 mg, 30 mL, Route: IV, Initial Loading Dose: 4 mg, [employer] Dose: 1 mg, [employer] Lockout: 5 minutes, Continuous Basal Rate: 0 mg, 4 Hour Limit (In MG): 30, Drug Form: INJ, Continuous, Pain, Start date: 06/26/14 13:50:00, Duration: 30 day, Stop date: 07/26/14...Notes: Dose: Delay: Basal rate: 4hr limit: (Same as:Rashaun-Jedelmar) No Longer Active 06/26/2014 [facility] Naloxone 0.04 mg, 0.1 mL, Route: IVP, Drug form: INJ, Q2MIN, Dosing Weight 86.364, kg, PRN Narcotic Reversal, Start date: 06/26/14 13:50:00, Duration: 30 day, Stop date: 07/26/14 13:49:00Notes: Same as Narcan No Longer Active 06/26/2014 [facility] Calcium Chloride 0.0014 MEQ/ML / Potassium Chloride 0.004 MEQ/ML / Sodium Chloride 0.103 MEQ/ML / Sodium Lactate 0.028 MEQ/ML Injectable Solution 1,000 mL, Rate: 125 ml/hr, Infuse over: 8 hr, Route: IV, Dosing Weight 86.364 kg, Total Volume: 1,000, Start date: 06/26/14 13:47:00, Duration: 30 day, Stop date: 07/26/14 13:46:00 No Longer Active 06/26/2014 [facility] Morphine 4 mg, 1 mL, Route: IVP, Drug form: INJ, Q3H, Dosing Weight 86.364, kg, PRN Pain Score 4-6, Start date: 06/26/14 13:47:00, Duration: 30 day, Stop date: 07/26/14 13:46:00Notes: (Same as:MORPhine Sulfate) No Longer Active 06/26/2014 [facility] Ondansetron 4 mg, 2 mL, Route: IVP, Drug form: INJ, Q6H, Dosing Weight 86.364, kg, PRN Nausea & Vomiting, Start date: 06/26/14 13:47:00, Duration: 30 day, Stop date: 07/26/14 13:46:00Notes: (Same as: Ginny) MEDICATION WASTE Product Size: 4 mg Product Wasted: ___ mg No Longer Active 06/26/2014 [facility] zolpidem 5 mg, 1 tab, Route: PO, Drug form: TAB, Bedtime, Dosing Weight 76.364, kg, PRN Insomnia, Start date: 06/26/14 13:47:00, Duration: 30 day, Stop date: 07/26/14 13:46:00Notes: (Same As: Ambien) No Longer Active 06/26/2014 [facility] Tramadol 50 mg, 1 tab, Route: PO, Drug form: TAB, Q4H, Dosing Weight 86.364, kg, PRN Pain Score 4-6, Start date: 06/26/14 13:47:00, Duration: 48 hr, Stop date: 06/28/14 13:46:00Notes: Not to exceed 400mg/day. (Same As: Ultram) No Longer Active 06/26/2014 [facility] Lactated Ringers IV 500 mL 500 mL, Rate: 50 ml/hr, Infuse over: 10 hr, Route: IV, Dosing Weight 86.364 kg, Total Volume: 500, Start date: 06/26/14 10:41:00, Duration: 30 day, Stop date: 07/26/14 10:40:00 Inactive 06/26/2014 [facility] lidocaine 1% injectable solution 1 ml, Route: SUB-Q, Dosing Weight 86.364, kg, ONCE, Start date: 06/26/14 10:41:00, Stop date: 06/26/14 10:41:00 Inactive 06/26/2014 [facility] estradiol 2 mg oral tablet 1 mg, PO, Daily, # 30 tab, 0 Refill(s) Active 06/24/2014 [facility] 24 HR Metoprolol Tartrate 50 MG Extended Release Tablet [Toprol] 50 mg=1 tab, PO, Daily, # 30 tab, 0 Refill(s) Active 06/24/2014 [facility] Cefazolin 2 gm, 50 mL, Route: IVPB, Drug form: INJ, ONCALL, Dosing Weight 76.364, kg, Start date: 06/19/14 13:00:00, Duration: 30 day, Stop date: 07/19/14 12:59:00 No Longer Active 06/19/2014 [facility] Allergies, Adverse Reactions, Alerts Substance Category Reaction Severity Reaction type Status Date Reported Comments Source sulfa drugs Assertion hives Drug allergy Active [facility] Flagyl Assertion hives Drug allergy Active [facility] NKFA Assertion Drug allergy Active [facility] Tape Assertion sensitie Drug allergy Active [facility] HYDROcodone Assertion hives Drug allergy Active [facility] Immunizations Immunization Date Given Site Status Last Updated Comments Source Results Order Name Results Value Reference Range Date Interpretation Comments Source Bone Density Scan Bone Density Scan Patient Name: JACINDA LOPEZ : 1960; Age: 57 years y/o Female MR: [id number] Study: Bone Density Scan 07/06/2017 2:04 PM CDT Ordering Physician: Herman Goldberg DPM Clinical Indication: osteoporosis - osteoporosis. Comparison: None FINDINGS: The axial lumbar bone mineral density is 117% of the expected age matched bone mass with a T-score 1.7. Axial lumbar average BMD is 1.230 g/cm2. The left femoral neck bone mineral density is 107% of the expected age matched bone mass with a T-score of 0.5. Left femoral neck BMD is 0.908 g/cm2. The total femoral BMD is 1.155 g/cm2. IMPRESSION: 1. Normal bone mineral density of the lumbar spine. 2. Normal bone mineral density of the left femoral neck. The World Health Organization has established that OSTEOPOROSIS occurs at -2.5 or more standard deviations (SD) below peak bone mass. OSTEOPENIA (low bone mass) occurs at -1.0 standard deviations to -2.5 standard deviations below peak bone mass. SL: [id number] 07/06/2017 - - Read by: Paras Shelley MD Dictated Date/time: 07/06/17 14:23 Electronically Signed by: Paras Shelley MD 07/06/17 14:24 FINAL REPORT [facility] Foot wo contrast CT Foot wo contrast CT CT RIGHT FOOT WITHOUT CONTRAST WITH SAGITTAL AND CORONAL REFORMATTED IMAGES HISTORY: ; CT DLP 175 mGy-cm CJ - evaluate fusion site rt foot, pt states she had surgery september 2015 and her foot has been hurting and swelling since surgery. she went to the dr on monday and they found a broken screw; COMPARISON: None available. FINDINGS: Postoperative changes of 1st tarsometatarsal joint fusion utilizing a dorsomedial plate and screws within the medial cuneiform and 1st metatarsal base. No evidence of hardware loosening or fracture. There is chronic articular cortex sclerois and remodeling 1st TMT joint but no 1st TMT joint solid osseous fusion. Two small orthopedic screws are noted within the 2nd metatarsal neck which may be related to prior osteotomy or fracture fixation. No evidence of screw loosening or fracture. There is solid fusion of the dorsal aspect of the 2nd tarsometatarsal joint. 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 No fracture, dislocation, or aggressive osseous lesion is seen within the foot. No osseous erosion to suggest radiographic evidence of osteomyelitis. Chronic deformity of the distal 1st metatarsal is suggestive of old healed osteotomy. Two small accessory os naviculare are noted. No tendon abnormality is evident in the foot. No soft tissue mass or fluid collection. IMPRESSION: 1. 1st tarsometatarsal arthrodesis hardware in satisfactory positioning without evidence of hardware loosening or fracture. 2. Chronic remodeling of the 1st tarsometatarsal joint but with no solid osseous fusion. 3. Two small orthopedic screws in the 2nd metatarsal neck without evidence of loosening. 4. Deformity of the distal 1st metatarsal is suggestive of old healed osteotomy. 5. Note of solid fusion involving the dorsal aspect of the 2nd TMT joint and moderate degenerative arthrosis of the 3rd TMT joint. SL: [id number] 12/08/2016 - - Read by: Mike Brantley MD Dictated Date/time: 12/08/16 16:02 Electronically Signed by: Mike Brantley MD 12/08/16 16:38 FINAL REPORT [facility] HEMATOLOGY Basophils # 0.0 K/CMM 0.0 - 0.2 06/27/2014 [facility] HEMATOLOGY Eosinophils # 0.0 K/CMM 0.0 - 0.5 06/27/2014 [facility] HEMATOLOGY Monocytes # 0.6 K/CMM 0.0 - 0.8 06/27/2014 [facility] HEMATOLOGY Lymphocytes # 1.5 K/CMM 1.0 - 5.5 06/27/2014 [facility] HEMATOLOGY Segs-Bands # 11.9 K/CMM 1.5 - 8.1 06/27/2014 [facility] HEMATOLOGY Segs 85.4 % 45.0 - 75.0 06/27/2014 [facility] HEMATOLOGY Monocytes 4.1 % 2.0 - 12.0 06/27/2014 [facility] HEMATOLOGY Lymphocytes 10.5 % 20.0 - 40.0 06/27/2014 [facility] HEMATOLOGY Eosinophils 0.0 % 0.0 - 4.0 06/27/2014 [facility] HEMATOLOGY Basophils 0.0 % 0.0 - 1.0 06/27/2014 [facility] HEMATOLOGY MPV 8.5 fL 7.4 - 10.4 06/27/2014 [facility] HEMATOLOGY Platelet 261 K/CMM 133 - 450 06/27/2014 [facility] HEMATOLOGY RDW 12.8 % 11.5 - 14.5 06/27/2014 [facility] MCV 96.6 fL 80.0 - 98.0 06/27/2014 [facility] Hct 33.9 % 36.0 - 48.0 06/27/2014 [facility] HEMATOLOGY Hgb 11.6 g/dL 12.0 - 16.0 06/27/2014 [facility] HEMATOLOGY MCHC 34.3 g/dL 32.0 - 36.0 06/27/2014 [facility] MCH 33.1 pg 27.0 - 31.0 06/27/2014 [facility] RBC 3.51 M/CMM 4.20 - 5.40 06/27/2014 [facility] WBC 14.0 K/CMM 3.7 - 10.4 06/27/2014 [facility] BLOOD BANK RESULTS Antibody Scrn Negative (06/19/14 12:15 PM) 06/19/2014 [facility] BLOOD BANK RESULTS ABO/Rh B POS 06/19/2014 [facility] ELECTROLYTES AGAP 9.9 meq/L 10.0 - 20.0 06/19/2014 [facility] ELECTROLYTES eGFR 83 mL/min/1.73m2 06/19/2014 1Result Comment: The eGFR is calculated using the CKD-EPI formula. In most young, healthy individuals the eGFR will be >90 mL/min/1.73m2. The eGFR declines with age. An eGFR of 60-89 may be normal in some populations, particularly the elderly, for whom the CKD-EPI formula has not been extensively validated. Use of the eGFR is not recommended in the following populations: Individuals with unstable creatinine concentrations, including patients and those with serious co-morbid conditions. Patients with extremes in muscle mass or diet. The data above are obtained from the National Kidney Disease Education Program (NKDEP) which additionally recommends that when the eGFR is used in patients with extremes of body mass index for purposes of drug dosing, the eGFR should be multiplied by the estimated BMI. [facility] ELECTROLYTES Glucose Lvl 89 mg/dL 70 - 99 06/19/2014 2Interpretive Data: Adult reference range values reflect the clinical guidelines of the [place] [employer]. [facility] ELECTROLYTES Creatinine Lvl 0.8 mg/dL 0.5 - 1.4 06/19/2014 [facility] ELECTROLYTES BUN 11 mg/dL 7 - 22 06/19/2014 [facility] ELECTROLYTES Sodium Lvl 137 meq/L 135 - 145 06/19/2014 [facility] ELECTROLYTES Calcium Lvl 9.1 mg/dL 8.5 - 10.5 06/19/2014 [facility] ELECTROLYTES CO2 29 meq/L 24 - 32 06/19/2014 [facility] ELECTROLYTES Potassium Lvl 3.9 meq/L 3.5 - 5.1 06/19/2014 [facility] ELECTROLYTES Chloride Lvl 102 meq/L 95 - 109 06/19/2014 [facility] HEMATOLOGY RDW 12.8 % 11.5 - 14.5 06/19/2014 [facility] HEMATOLOGY MCV 97.0 fL 80.0 - 98.0 06/19/2014 [facility] HEMATOLOGY MCHC 34.0 g/dL 32.0 - 36.0 06/19/2014 [facility] HEMATOLOGY Hct 39.8 % 36.0 - 48.0 06/19/2014 [facility] HEMATOLOGY MCH 32.9 pg 27.0 - 31.0 06/19/2014 [facility] HEMATOLOGY Platelet 278 K/CMM 133 - 450 06/19/2014 [facility] HEMATOLOGY MPV 8.8 fL 7.4 - 10.4 06/19/2014 [facility] HEMATOLOGY Hgb 13.5 g/dL 12.0 - 16.0 06/19/2014 [facility] HEMATOLOGY WBC 8.6 K/CMM 3.7 - 10.4 [facility] RBC 4.11 M/CMM 4.20 - 5.40 06/19/2014 [place] HEMATOLOGY Monocytes # 0.5 K/CMM 0.0 - 0.8 06/19/2014 [place] HEMATOLOGY Basophils # 0.1 K/CMM 0.0 - 0.2 06/19/2014 [place] HEMATOLOGY Eosinophils # 0.2 K/CMM 0.0 - 0.5 06/19/2014 [place] HEMATOLOGY Basophils 0.6 % 0.0 - 1.0 06/19/2014 [place] HEMATOLOGY Segs-Bands # 6.0 K/CMM 1.5 - 8.1 06/19/2014 [place] HEMATOLOGY Lymphocytes # 1.9 K/CMM 1.0 - 5.5 06/19/2014 [place] HEMATOLOGY Lymphocytes 21.7 % 20.0 - 40.0 06/19/2014 [place] HEMATOLOGY Monocytes 5.6 % 2.0 - 12.0 06/19/2014 [place] HEMATOLOGY Eosinophils 1.8 % 0.0 - 4.0 06/19/2014 [place] HEMATOLOGY Segs 70.3 % 45.0 - 75.0 06/19/2014 [place] URINE CHEM U Preg Negative (06/19/14 12:15 PM) Negative 06/19/2014 [place] Vital Signs Vital Sign Value Date Comments Source Temperature Oral (F) 97.7 F 06/27/2014 [place] Heart Rate 67 06/27/2014 [place] Respitory Rate 18 06/27/2014 [place] Systolic (mm Hg) 127 06/27/2014 [place] Diastolic (mm Hg) 67 06/27/2014 [place] Systolic (mm Hg) 119 06/27/2014 [place] Diastolic (mm Hg) 58 06/27/2014 [place] Respitory Rate 18 06/27/2014 [place] Heart Rate 59 06/27/2014 [place] Temperature Oral (F) 97.7 F 06/27/2014 [place] Temperature Oral (F) 97.2 F 06/27/2014 [place] Respitory Rate 18 06/27/2014 [place] Heart Rate 65 06/27/2014 [facility] Systolic (mm Hg) 105 06/27/2014 [facility] Diastolic (mm Hg) 60 06/27/2014 [facility] Weight 86.364 06/24/2014 [facility] Height 162.56 cm 06/24/2014 [facility] BMI Calculated 32.68 06/24/2014 [facility] Encounters Location Location Details Encounter Type Encounter Number Reason For Visit Attending Provider ADM Date DC Date Status Source [facility] OBS Observation Patient [id number] Mack Jorge 06/26/2014 06/27/2014 [facility] Outpatient [id number] Herman Goldberg 12/08/2016 12/09/2016 [facility] Outpatient [id number] Herman Goldberg 07/06/2017 07/07/2017 [facility] Procedures Procedure Code Date Perfomer Comments Source Abdominoplasty [id number] 03/20/2009 [facility] Breast augmentation [id number] 03/20/2009 [facility] Abdominoplasty [id number] 03/20/2009 [facility] Breast augmentation [id number] 03/20/2009 [facility]
[2018-06-06] MEDS ORDERED: HYDROCODONE/APAP 5MG-325MG TAB PO ONE (10:30)
== END 2018-06-06 11:00 | disposition home or self-care (01) ==
LOC: FSED 10:07
DX: H66.002 Acute suppurative otitis media without spontaneous rupture of ear drum, left ear (principal)
CPT/HCPCS: 99283